=== PATIENT | female | born 1945 | race Two or more races ===

== ENCOUNTER → 2016-12-18 | Outpatient (REF) | payer MEDICARE, BC ==
[2016-12-18 18:33] LABS: BLOOD UREA NITROGEN 24 MG/DL (7-18); CREATININE FOR GFR 0.62 MG/DL (0.55-1.02); GLOMERULAR FILTRATION RATE > 60.0 (>39)
== END ==
LOC: M LABDRAW1 15:54
PROVIDERS: ATTEND Orthopaedic Surgery
DX: M54.5 Low back pain (principal)

== ENCOUNTER → 2017-02-07 | Outpatient (REF) | payer MEDICARE, BC ==
[2017-02-07 20:38] LABS: BASO # 0.1 K/mm3 (0.0-0.2); BASO % 1.5 % (0.0-1.0); EOS # 0.1 K/mm3 (0.0-0.50); EOS % 1.7 % (0.0-3.0); LARGE UNSTAINED CELL # 0.1 K/mm3 (0.0-0.4); LARGE UNSTAINED CELL % 1.9 % (0.0-4.0); LYMPH # 2.7 K/mm3 (1.5-4.5); LYMPH % 38.5 % (24.0-44.0); MEAN CORPUSCULAR HEMOGLOBIN 32.1 pg (27.0-33.0); MEAN CORPUSCULAR HGB CONC 33.2 g/dl (32.0-36.5); MEAN CORPUSCULAR VOLUME 96.8 fl (80.0-96.0); MONO # 0.2 K/mm3 (0.0-0.8); MONO % 3.1 % (0.0-5.0); NEUTROPHILS # 3.8 K/mm3 (1.8-7.7); NEUTROPHILS % 53.3 % (36.0-66.0); PLATELET COUNT, AUTOMATED 266 k/mm3 (150-450); RED CELL DISTRIBUTION WIDTH 12.2 % (11.5-14.5); WHITE BLOOD COUNT 7.1 K/mm3 (4.0-10.0)
[2017-02-07 21:14] LABS: ERYTHROCYTE SEDIMENTATION RATE 9 mm/hr (0-30)
[2017-02-10 00:06] LABS: Lyme Disease IgG/IgM Antibodie <0.91 ISR (0.00-0.90); Lyme Disease IgM Ab Quantitati <0.80 index (0.00-0.79); SJOGREN'S ANTI SS-A <0.2 AI (0.0-0.9); SJOGREN'S ANTI SS-B <0.2 AI (0.0-0.9)
[2017-02-12 00:11] LABS: VITAMIN E LEVEL 16.4 mg/L (6.5-21.5)
[2017-02-14 13:45] LABS: FOLATE 12.3 NG/ML (>5.4); VITAMIN B12 LEVEL 457 PG/ML (247-911)
== END ==
LOC: M LABDRAW1 18:22
PROVIDERS: ATTEND Physician Assistant Medical
DX: R51 Headache (principal); M25.50 Pain in unspecified joint

== ENCOUNTER 2017-03-20 08:20 | Outpatient (RCR) | payer MEDICARE, BC | END 2017-03-23 | LOC: M PT 08:20 | PROVIDERS: ATTEND Physician Assistant Medical | DX: Z51.89 Encounter for other specified aftercare (principal); M47.22 Other spondylosis with radiculopathy, cervical region | CPT/HCPCS: 97110; 97140; 97162; G8981; G8982 ==

== ENCOUNTER 2017-03-25 08:16 | Outpatient (RCR) | payer MEDICARE, BC | END 2017-04-23 | LOC: M PT 08:16 | PROVIDERS: ATTEND Physician Assistant Medical | DX: Z51.89 Encounter for other specified aftercare (principal); M54.2 Cervicalgia; M43.02 Spondylolysis, cervical region | CPT/HCPCS: 97110; G8981; G8982; G8983 ==

== ENCOUNTER → 2017-12-20 | Outpatient (CLI) | payer MEDICARE, BC ==
[2017-12-20 13:50] LABS: RHEUMATOID FACTOR QUANT < 10.0 IU/ML (<15.0)
[2017-12-20 13:57] LABS: ERYTHROCYTE SEDIMENTATION RATE 11 mm/hr (0-30)
[2017-12-20 14:36] LABS: TOTAL 25(OH) VITAMIN D 44.2 NG/ML (30.0-100.0); VITAMIN B12 LEVEL 901 PG/ML
[2017-12-20 14:37] LABS: FOLATE 18.6 NG/ML
[2017-12-25 00:09] LABS: VITAMIN B1 LEVEL WHOLE BLOOD 230.3 nmol/L (66.5-200.0); VITAMIN B6,PYRIDOXAL PHOSPHATE 41.9 ug/L (2.0-32.8)
[2017-12-31 15:00] LABS: ANTI DOUBLE STRAND-DNA AB 15 IU/mL (0-9); ANTINUCLEAR ANTIBODIES DIRECT Positive (Negative); RNP ANTIBODIES <0.2 AI (0.0-0.9); SJOGREN'S ANTI SS-A <0.2 AI (0.0-0.9); SJOGREN'S ANTI SS-B <0.2 AI (0.0-0.9); SMITH ANTIBODIES <0.2 AI (0.0-0.9); VITAMIN E(ALPHA TOCOPHEROL) 23.5 mg/L (9.0-29.0); VITAMIN E(GAMMA TOCOPHEROL) 0.3 mg/L (0.5-4.9)
== END ==
LOC: M SMT 09:00
DX: R53.83 Other fatigue (principal); G62.9 Polyneuropathy, unspecified; M25.50 Pain in unspecified joint
CPT/HCPCS: 82746

== ENCOUNTER 2018-01-09 07:59 | Day surgery (SDC) | payer MEDICARE, BC ==
[2018-01-09] MEDS ORDERED: LIDOCAINE 2% INJ 100 MG/5 ML SDV (FOR ANES.) As Ordered (09:13)
[2018-01-09] MEDS ORDERED: PROPOFOL 200 MG/20 ML VIAL As Ordered (09:13)
[2018-01-09] MEDS ORDERED: fentaNYL 100 MCG/2 ML INJECTION (J3010) As Ordered (09:14)
[2018-01-09] MEDS ORDERED: GLYCOPYRROLATE INJ 0.2 MG/ML 2 ML VIAL As Ordered (09:21)
[2018-01-09] MEDS ORDERED: NS 1,000 ML IV (10:15)
== END 2018-01-09 09:53 | disposition home or self-care (01) ==
LOC: M OPP 07:59
DX: K31.89 Other diseases of stomach and duodenum (principal); R10.13 Epigastric pain; Z79.82 Long term (current) use of aspirin; Z90.710 Acquired absence of both cervix and uterus; J30.2 Other seasonal allergic rhinitis; Z91.89 Other specified personal risk factors, not elsewhere classified; Z90.49 Acquired absence of other specified parts of digestive tract
CPT/HCPCS: 43239

== ENCOUNTER 2018-03-24 09:02 | Outpatient (RCR) | payer MEDICARE, BC | END 2018-04-23 | LOC: M PT 09:02 | DX: Z47.89 Encounter for other orthopedic aftercare (principal); M43.16 Spondylolisthesis, lumbar region | CPT/HCPCS: 97110 ==

== ENCOUNTER 2018-04-24 08:45 | Outpatient (RCR) | payer MEDICARE, BC | END 2018-05-23 | LOC: M PT 04-25 10:19 | DX: Z47.89 Encounter for other orthopedic aftercare (principal); M51.36 Other intervertebral disc degeneration, lumbar region; M51.26 Other intervertebral disc displacement, lumbar region; M48.061 Spinal stenosis, lumbar region without neurogenic claudication; M47.816 Spondylosis without myelopathy or radiculopathy, lumbar region; M43.16 Spondylolisthesis, lumbar region | CPT/HCPCS: 97110 ==

== ENCOUNTER 2019-04-09 09:11 | Day surgery (SDC) | payer MEDICARE, BC ==
[~2019-04-09] VITALS: Ht 160 cm; Wt 79.4 kg
[~2019-04-09 09:11] MED LIST: ASPI81TA26 PO; B COTAB3 PO; CHOL100029 PO; NS 1,000 ML IV ONE; VITA-157 PO; VITA100067 PO; VITA400C7 PO; VITA500T PO; VITATAB11 PO
[2019-04-09] MEDS ORDERED: LIDOCAINE 2% INJ 100 MG/5 ML SDV (FOR ANES.) As Ordered ONE (10:03)
[2019-04-09] MEDS ORDERED: PROPOFOL 200 MG/20 ML VIAL As Ordered ONE (10:03)
[2019-04-09] MEDS ORDERED: GLYCOPYRROLATE INJ 0.2 MG/ML 2 ML VIAL As Ordered ONE (10:56)
--- NOTE | 2019-04-09 11:09 | ROOR ---
Patient Name: Tabitha Montoya Procedure Date: 04/09/2019 10:45 AM Date of : 1945 Age: 73 Room: [facility] Gender: Female Note Status: Finalized Procedure: Colonoscopy Indications: Screening for colorectal malignant neoplasm Providers: Van Cage Jr, MD Referring MD: SUMAN RUBALCAVA MD Requesting Provider: Medicines: Propofol per Anesthesia Complications: No immediate complications. Procedure: Pre-Anesthesia Assessment: - Prior to the procedure, a History and Physical was performed, and patient medications and allergies were reviewed. The patient is competent. The risks and benefits of the procedure and the sedation options and risks were discussed with the patient. All questions were answered and informed consent was obtained. Patient identification and proposed procedure were verified by the physician and the nurse in the pre-procedure area and in the procedure room. Mental Status Examination: alert and oriented. Airway Examination: normal oropharyngeal airway and neck mobility. Respiratory Examination: clear to auscultation. CV Examination: normal. ASA Grade Assessment: II - A patient with mild systemic disease. After reviewing the risks and benefits, the patient was deemed in satisfactory condition to undergo the procedure. The anesthesia plan was to use moderate sedation / analgesia (conscious sedation). Immediately prior to administration of medications, the patient was re-assessed for adequacy to receive sedatives. The heart rate, respiratory rate, oxygen saturations, blood pressure, adequacy of pulmonary ventilation, and response to care were monitored throughout the procedure. The physical status of the patient was re-assessed after the procedure. The Colonoscope was introduced through the anus and advanced to the cecum, identified by appendiceal orifice and ileocecal valve. The colonoscopy was performed without difficulty. The patient tolerated the procedure well. The quality of the bowel preparation was adequate. Findings: The rectum, recto-sigmoid colon, sigmoid colon, descending colon, transverse colon, ascending colon, cecum, appendiceal orifice and ileocecal valve appeared normal. The sigmoid colon, descending colon and transverse colon were moderately redundant. Impression: - The rectum, recto-sigmoid colon, sigmoid colon, descending colon, transverse colon, ascending colon, cecum, appendiceal orifice and ileocecal valve are normal. - Redundant colon. - No specimens collected. Recommendation: - Discharge patient to home (ambulatory). - Repeat colonoscopy in 10 years for screening purposes. Van Cage MD Van Cage Jr, MD 04/09/2019 11:09:22 AM Electronically signed by Van Cage Jr, MD Number of Addenda: 0 Note Initiated On: 04/09/2019 10:45 AM Estimated Blood Loss: Estimated blood loss: none.
[2019-04-09 11:31] VITALS: BP 134/82
== END 2019-04-09 11:40 | disposition home or self-care (01) ==
LOC: M OPP 09:11
PROVIDERS: ATTEND Surgery
DX: Z12.11 Encounter for screening for malignant neoplasm of colon (principal); Q43.8 Other specified congenital malformations of intestine; Z79.82 Long term (current) use of aspirin

== ENCOUNTER → 2019-11-23 | Outpatient (CLI) | payer MEDICARE, BC ==
[~2019-11-23] MED LIST changes: +CALCTAB15 PO; +COQ1200C3 PO; +CVS1CAP2 PO; +D31000TA2 PO; -NS 1,000 ML IV ONE; +REDCAP4 PO; +REST0.05 OU; +SM F10002 PO; +VITA-243 PO; -VITA500T PO; +VITACAP8 PO; +[UNRECOGNIZED DRUG - CODE] PO
--- NOTE | 2019-11-23 11:13 | REPPI ---
REASON: HALIE positive. COMPARISON: 06/21/2011 FINDINGS: The superior mediastinal structures are midline. The cardiac silhouette is unremarkable in size, shape, and position. The diaphragmatic surfaces of the lungs are regular, and the costophrenic angles are clear. The pulmonary [place] are clear. The imaged osseous structures are intact. IMPRESSION: There is no acute cardiopulmonary disease. No significant change from the prior exam. Electronically Signed by Loy Olmedo DO 11/23/2019 12:11 P
[2019-11-23 13:09] LABS: BASO # 0.1 10^3/uL (0.0-0.2); BASO % 1.3 % (0.0-1.0); EOS # 0.1 10^3/uL (0.0-0.5); EOS % 2.4 % (0.0-3.0); HEMATOCRIT 37.3 % (36.0-47.0); HEMOGLOBIN 11.9 g/dl (12.0-15.5); LYMPH # 2.4 10^3/uL (1.5-5.0); LYMPH % 43.1 % (24.0-44.0); MEAN CORPUSCULAR HEMOGLOBIN 31.2 pg (27.0-33.0); MEAN CORPUSCULAR HGB CONC 31.9 g/dl (32.0-36.5); MEAN CORPUSCULAR VOLUME 97.9 fl (80.0-96.0); MONO # 0.4 10^3/uL (0.0-0.8); MONO % 6.4 % (0.0-5.0); NEUTROPHILS # 2.6 10^3/uL (1.5-8.5); NEUTROPHILS % 46.6 % (36.0-66.0); PLATELET COUNT, AUTOMATED 255 10^3/uL (150-450); RED BLOOD COUNT 3.81 10^6/uL (4.00-5.40); WHITE BLOOD COUNT 5.5 10^3/uL (4.0-10.0)
[2019-11-23 13:15] LABS: ALBUMIN 3.9 GM/DL (3.2-5.2); ALT/SGPT 31 U/L (12-78); BILIRUBIN,TOTAL 0.3 MG/DL (0.2-1.0); BLOOD UREA NITROGEN 27 MG/DL (7-18); C REACTIVE PROTEIN QUANTITATIV < 0.30 MG/DL (0.00-0.30); CALCIUM LEVEL 9.1 MG/DL (8.8-10.2); CARBON DIOXIDE LEVEL 31 MEQ/L (21-32); CHLORIDE LEVEL 108 MEQ/L (98-107); COMPLEMENT C3 83 MG/DL (90-180); COMPLEMENT C4 10 MG/DL (10-40); GLOMERULAR FILTRATION RATE > 60.0 (>39); GLUCOSE, FASTING 92 MG/DL (70-100); POTASSIUM SERUM 4.6 MEQ/L (3.5-5.1); SODIUM LEVEL 143 MEQ/L (136-145); TOTAL PROTEIN 6.8 GM/DL (6.4-8.2)
[2019-11-23 13:27] LABS: ERYTHROCYTE SEDIMENTATION RATE 10 mm/hr (0-30)
[2019-11-24 15:38] LABS: ALBUMIN 4.45 GM/DL (3.29-5.55); ALBUMIN % 65.5 % (55.8-66.1); ALPHA-1-GLOBULIN % 3.7 % (2.9-4.9); ALPHA-1-GLOBULINS 0.25 GM/DL (0.17-0.41); ALPHA-2-GLOBULINS 0.58 GM/DL (0.42-0.99); ALPHA-2-GLOBULINS % 8.6 % (7.1-11.8); BETA-1-GLOBULINS % 5.9 % (4.7-7.2); BETA-2-GLOBULINS 0.24 GM/DL (0.19-0.55); BETA-2-GLOBULINS % 3.5 % (3.2-6.5); GAMMA GLOBULIN % 12.8 % (11.1-18.8); GAMMA GLOBULINS 0.87 GM/DL (0.65-1.58)
[2019-11-25 10:08] LABS: ANA (HEP2) Positive (.); ANTI CENTROMERE ANTIBODY <0.2 AI (0.0-0.9); ANTI DS-DNA AB Negative (Negative); ANTI SCLERODERMA ANTIBODIES <0.2 AI (0.0-0.9)
== END ==
LOC: M PLAIMG 09:20
PROVIDERS: ATTEND Internal Medicine
DX: I73.00 Raynaud's syndrome without gangrene (principal); R76.8 Other specified abnormal immunological findings in serum
CPT/HCPCS: 36415; 71046; 80053; 84165; 85025; 85652; 86038; 86140; 86160; 86225; 86235; 86255; G0463

== ENCOUNTER → 2020-01-12 | Outpatient (CLI) | payer MEDICARE, BC ==
[~2020-01-12] MED LIST changes: -D31000TA2 PO; -VITACAP8 PO
--- NOTE | 2020-01-12 12:07 | REP ---
Clinical: History of Raynaud's disease. Technique: Complete adult bone survey to include the skull, cervical thoracic and lumbosacral spine, pelvis, bilateral humerus and femurs. 17 total images obtained for evaluation. Findings: Skull demonstrates hyperostosis frontalis without significant lytic or blastic lesion to suggest underlying osseous abnormality. Advanced degenerative spondylosis to the cervical spine includes osteophytosis, endplate sclerosis, disc space narrowing and facet arthropathy as well as straightening of normal lordosis. No lytic or blastic lesion identified to suggest underlying osseous abnormality. Thoracic and lumbar spine demonstrates age-related osteopenia and moderate multilevel degenerative changes including endplate sclerosis, early osteophytosis, and mild hypertrophic facet changes. No evidence for acute fracture / compression injury of the thoracic or lumbosacral spine noted. Lateral view demonstrates mild chronic grade 1 anterolisthesis at the L4-5 level with associated hypertrophic facet changes. No lytic or blastic lesion identified to suggest underlying osseous abnormality. Generalized symmetric age-related degenerative changes to the bilateral shoulders, elbows, hips and knees noted without lytic or blastic lesion identified to suggest underlying osseous abnormality involving the humerus or femurs. Impression: 1. Degenerative changes as noted above. 2. No significant lytic or blastic osseous lesions to suggest underlying pathology. Electronically Signed by Scott Lopez MD 01/12/2020 11:40 A
== END ==
LOC: M RAD 10:35
PROVIDERS: ATTEND Internal Medicine Hematology & Oncology
DX: I73.00 Raynaud's syndrome without gangrene (principal); D47.2 Monoclonal gammopathy

== ENCOUNTER → 2020-01-14 | Outpatient (CLI) | payer MEDICARE, BC | LOC: M WHC 11:01 | PROVIDERS: ATTEND Internal Medicine Hematology & Oncology | DX: I73.00 Raynaud's syndrome without gangrene (principal) ==

== ENCOUNTER → 2020-01-25 | Outpatient (CLI) | payer MEDICARE, BC | LOC: M CARPUL 09:30 | PROVIDERS: ATTEND Internal Medicine Hematology & Oncology | DX: E85.9 Amyloidosis, unspecified (principal); I73.00 Raynaud's syndrome without gangrene; D47.2 Monoclonal gammopathy ==

== ENCOUNTER → 2020-10-19 | Outpatient (CLI) | payer MEDICARE, BC ==
[~2020-10-19] MED LIST changes: +D31000TA2 PO; -VITA-157 PO; +VITACAP8 PO; +VITAE40CA PO
--- NOTE | 2020-10-19 11:06 | REP ---
INDICATION: COUGH. COMPARISON: Comparison chest x-ray 06/21/2011. TECHNIQUE: Two views.. FINDINGS: The lungs are well inflated and free of infiltrate. The pleural angles are sharp. The heart size is normal. Pulmonary vasculature is not increased. No significant bony abnormality is seen. Thoracic aorta is somewhat tortuous and there are degenerative changes in the thoracic spine. There are surgical clips in right upper quadrant of the abdomen. IMPRESSION: No active cardiopulmonary disease.. <Electronically signed by Schuyler Thorpe > 10/19/20 [id number]
== END ==
LOC: M RAD 10:34
PROVIDERS: ATTEND Allergy & Immunology Allergy
DX: R05 Cough (principal)

== ENCOUNTER → 2020-11-23 | Outpatient (CLI) | payer MEDICARE, BC | LOC: M WHC 08:37 | PROVIDERS: ATTEND Advanced Practice Midwife | DX: M85.80 Other specified disorders of bone density and structure, unspecified site (principal); Z53.9 Procedure and treatment not carried out, unspecified reason ==

== ENCOUNTER → 2020-11-30 | Outpatient (CLI) | payer MEDICARE, BC ==
--- NOTE | 2020-11-30 10:35 | DEXAMM ---
INDICATION: M85.80 OSTEOPENIA AFTER MENOPAUSE. COMPARISON: 02/06/2018, 04/19/2008. TECHNIQUE: Bone density was measured using dual-energy x-ray absorptiometry (DEXA). FINDINGS: AP SPINE L1-L4 BMD 1.229 g/cm2 Young Adult T-Score 0.3 Age Matched Z-Score 2.0. LT FEMUR, TOTAL BMD 0.933 g/cm2 Young Adult T-Score -0.6 Age Matched Z-Score 1.2. LT NECK BMD 0.823 g/cm2 Young Adult T-Score -1.5 Age Matched Z-Score 0.4. RT FEMUR, TOTAL BMD 0.940 g/cm2 Young Adult T-Score -0.5 Age Matched Z-Score 1.2. RT NECK BMD 0.863 g/cm2 Young Adult T-Score -1.3 Age Matched Z-Score 0.7. IMPRESSION: There is normal bone density of the spine. There is low bone density of the left hip. There is low bone density of the right hip. The density of the spine has increased 4.1% since the initial exam on 04/19/2008. The density of the spine increased 0.2% since most recent exam on 02/06/2018. The density of the left hip has decreased 5.5% since initial exam on 04/19/2008. The density of the left hip has decreased 3.8% since most recent exam on 02/06/2018. The density of the right hip has decreased 2.2% since the initial exam on 04/19/2008. The density of the right hip has decreased 0.5% since the most recent exam on 02/06/2018. FOLLOW-UP: Recommendation for the next bone density exam: 2 years. <Electronically signed by Hayder Cheatham > 11/30/20 [id number]
== END ==
LOC: M WHC 07:53
PROVIDERS: ATTEND Advanced Practice Midwife
DX: M85.851 Other specified disorders of bone density and structure, right thigh (principal); M85.852 Other specified disorders of bone density and structure, left thigh

== ENCOUNTER → 2020-12-02 | Outpatient (CLI) | payer MEDICARE, BC | LOC: M WHC 13:10 | PROVIDERS: ATTEND Advanced Practice Midwife | DX: Z12.31 Encounter for screening mammogram for malignant neoplasm of breast (principal); Z53.9 Procedure and treatment not carried out, unspecified reason ==

== ENCOUNTER → 2020-12-12 | Outpatient (CLI) | payer MEDICARE, BC ==
[~2020-12-12] MED LIST changes: +GASTROGRAFIN SOLUTION 30ML (Q9963) As Ordered ONE; +ISOVUE-370 76% 100ML VIAL As Ordered ONE
--- NOTE | 2020-12-12 12:58 | REP ---
INDICATION: GEN ABD PAIN RT LOWER quadrant PAIN. COMPARISON: 05/28/2011. TECHNIQUE: Oral contrast was administered. CT abdomen performed without IV contrast. CT abdomen and pelvis performed with the intravenous administration of 100 cc of Isovue 370. Sagittal and coronal reconstruction images are performed. FINDINGS: Gallbladder: Prior cholecystectomy. Spleen: Normal. Adrenals: Normal. Pancreas: Normal. Kidneys: Normal. Small and large bowel: Unremarkable. Free fluid: None. Adenopathy: None. Appendix: Not inflamed. Osseous structures: There are degenerative changes of the spine without compression deformity. Pelvis: No mass. Prior hysterectomy. IMPRESSION: No significant abnormality detected. <Electronically signed by Hayder Cheatham > 12/12/20 [id number]
== END ==
LOC: M RAD 07:03
PROVIDERS: ATTEND Surgery
DX: R10.84 Generalized abdominal pain (principal); R10.31 Right lower quadrant pain; Z90.49 Acquired absence of other specified parts of digestive tract
CPT/HCPCS: 74178; Q9963; Q9967

== ENCOUNTER → 2021-01-28 | Outpatient (CLI) | payer MEDICARE, BC ==
[~2021-01-28] MED LIST changes: -GASTROGRAFIN SOLUTION 30ML (Q9963) As Ordered ONE; -ISOVUE-370 76% 100ML VIAL As Ordered ONE
== END ==
LOC: M LAB 08:25
PROVIDERS: ATTEND Physician Assistant Medical
DX: R51.9 Headache, unspecified (principal)

== ENCOUNTER → 2021-04-03 | Outpatient (CLI) | payer MEDICARE, BC ==
--- NOTE | 2021-04-03 09:01 | REPMRS ---
Patient History The patient states she had a clinical breast exam in November 2020. Patient is postmenopausal. No known family history of cancer. Taking estrogen for 20 years. Tomosynthesis is performed. Volpara breast density is b. [facility] lifetime risk of breast cancer 4.6%. Moderna vaccine 08/18/20 left arm. 09/21/20 right arm. 03/03/21 right arm. Patient states no breast complaints today. Patient has signed MRS History Sheet. Digital Woman Screen Mammo: April 03, 2021 - Exam #: [id number] Bilateral CC and MLO view(s) were taken. Technologist: RT Magali Prior study comparison: March 31, 2020, bilateral digital mammo screening bilat, performed at [facility]. February 11, 2019, bilateral digital mammo screening bilat, performed at [facility]. FINDINGS: There are scattered fibroglandular densities. There has been no change in the appearance of the mammogram from the prior studies. There is a mild amount of residual fibroglandular tissue which is fairly symmetric. There is no interval development of dominant mass, architectural distortion, or clustered microcalcification suggestive of malignancy. Assessment: BI-RADS/ACR category 1 mammogram. Negative Mammogram. Recommendation Routine screening mammogram in 1 year (for women over age 40). This mammogram was interpreted with the aid of an FDA-approved computer-aided dectection system. Electronically Signed By: Hayder Cheatham MD 04/03/21 0901
== END ==
LOC: M WHC 07:58
PROVIDERS: ATTEND Advanced Practice Midwife
DX: Z12.31 Encounter for screening mammogram for malignant neoplasm of breast (principal)

== ENCOUNTER → 2021-11-21 | Outpatient (RCR) | payer MEDICARE, BC ==
[~2021-11-21] MED LIST changes: -D31000TA2 PO; +VITA100093 PO
== END ==
LOC: M PT 10-30 13:43
PROVIDERS: ATTEND Physician Assistant
DX: M51.36 Other intervertebral disc degeneration, lumbar region (principal); M70.70 Other bursitis of hip, unspecified hip

== ENCOUNTER → 2021-11-28 | Outpatient (CLI) | payer MEDICARE, BC | LOC: M PLAIMG 12:41 | PROVIDERS: ATTEND Physician Assistant | DX: M51.36 Other intervertebral disc degeneration, lumbar region (principal); M51.24 Other intervertebral disc displacement, thoracic region; M51.26 Other intervertebral disc displacement, lumbar region; M51.34 Other intervertebral disc degeneration, thoracic region; N94.89 Other specified conditions associated with female genital organs and menstrual cycle ==

== ENCOUNTER 2021-11-29 09:15 | Outpatient (RCR) | payer MEDICARE, BC | END 2021-12-21 | LOC: M PT 09:15 | PROVIDERS: ATTEND Physician Assistant | DX: M51.36 Other intervertebral disc degeneration, lumbar region (principal); M70.70 Other bursitis of hip, unspecified hip ==

== ENCOUNTER → 2022-01-29 | Outpatient (REF) | payer MEDICARE, BC | LOC: M SFHCRHEU 15:46 | PROVIDERS: ATTEND Internal Medicine | DX: I73.00 Raynaud's syndrome without gangrene (principal); R76.8 Other specified abnormal immunological findings in serum; M89.9 Disorder of bone, unspecified ==

== ENCOUNTER → 2022-01-30 | Outpatient (CLI) | payer MEDICARE, BC ==
[2022-01-30 08:51] LABS: C REACTIVE PROTEIN QUANTITATIV < 0.30 MG/DL (0.00-0.30); COMPLEMENT C3 89 MG/DL (90-180); COMPLEMENT C4 15 MG/DL (10-40); MAGNESIUM LEVEL 2.2 MG/DL (1.8-2.4); PHOSPHORUS LEVEL 3.4 MG/DL (2.5-4.9)
[2022-01-30 11:15] LABS: TOTAL 25(OH) VITAMIN D 48.1 NG/ML (30.0-100.0)
[2022-01-31 23:07] LABS: ANA (HEP2) Positive (.); ANTI SCLERODERMA ANTIBODIES <0.2 AI (0.0-0.9); COMPLEMENT TOTAL (CH50) 50 U/mL (>41)
== END ==
LOC: M LAB 07:49
PROVIDERS: ATTEND Internal Medicine
DX: I73.00 Raynaud's syndrome without gangrene (principal); R76.8 Other specified abnormal immunological findings in serum; M89.9 Disorder of bone, unspecified

== ENCOUNTER 2022-02-20 08:42 | Outpatient (RCR) | payer MEDICARE, BC | END 2022-02-21 | LOC: M PT 08:42 | PROVIDERS: ATTEND Physician Assistant | DX: S32.020D Wedge compression fracture of second lumbar vertebra, subsequent encounter for fracture with routine healing (principal) ==

== ENCOUNTER 2022-03-21 08:45 | Outpatient (RCR) | payer MEDICARE, BC | END 2022-03-23 | LOC: M PT 08:45 | PROVIDERS: ATTEND Physician Assistant | DX: M54.50 Low back pain, unspecified (principal); M75.42 Impingement syndrome of left shoulder; S32.020D Wedge compression fracture of second lumbar vertebra, subsequent encounter for fracture with routine healing ==

== ENCOUNTER → 2022-04-06 | Outpatient (CLI) | payer MEDICARE, BC | LOC: M WHC 14:36 | PROVIDERS: ATTEND Advanced Practice Midwife | DX: Z12.31 Encounter for screening mammogram for malignant neoplasm of breast (principal) ==

== ENCOUNTER → 2022-04-23 | Outpatient (RCR) | payer MEDICARE, BC | LOC: M PT 03-28 08:38 | PROVIDERS: ATTEND Physician Assistant | DX: S32.020D Wedge compression fracture of second lumbar vertebra, subsequent encounter for fracture with routine healing (principal); M54.50 Low back pain, unspecified ==

== ENCOUNTER 2022-04-26 11:52 | Outpatient (RCR) | payer MEDICARE, BC | END 2022-05-23 | LOC: M PT 11:52 | PROVIDERS: ATTEND Physician Assistant | DX: M54.50 Low back pain, unspecified (principal) ==

== ENCOUNTER → 2023-05-13 | Outpatient (CLI) | payer MEDICARE, BC | LOC: M WHC 08:02 | PROVIDERS: ATTEND Advanced Practice Midwife | DX: Z12.31 Encounter for screening mammogram for malignant neoplasm of breast (principal); Z13.820 Encounter for screening for osteoporosis; M85.851 Other specified disorders of bone density and structure, right thigh; M85.852 Other specified disorders of bone density and structure, left thigh ==

== ENCOUNTER → 2023-08-26 | Outpatient (REF) | payer MEDICARE, BC ==
[2023-08-26 19:18] LABS: COMPLEMENT C3 113.9 MG/DL (90.0-170.0); COMPLEMENT C4 13.8 MG/DL (12-36)
[2023-08-28 23:09] LABS: ANA (HEP2) Positive (.); ANTI CENTROMERE ANTIBODY 0.3 AI (0.0-0.9); COMPLEMENT TOTAL (CH50) 52 U/mL (>41)
== END ==
LOC: M SFHCRHEU 12:50
PROVIDERS: ATTEND Internal Medicine
DX: D84.1 Defects in the complement system (principal); R76.8 Other specified abnormal immunological findings in serum; I73.00 Raynaud's syndrome without gangrene

== ENCOUNTER 2023-09-16 13:57 | Observation (INO) | payer MEDICARE, BC ==
[~2023-09-16] VITALS: Ht 160 cm; Wt 83.9 kg
[2023-09-16] MEDS: ASPIRIN 81MG CHEW TABLET PO SCH (09:00)
[2023-09-16 16:00] LABS: BASO # 0.1 10^3/uL (0.0-0.2); BASO % 0.9 % (0.0-1.0); EOS # 0.1 10^3/uL (0.0-0.5); EOS % 1.5 % (0.0-3.0); HEMATOCRIT 38.4 % (36.0-47.0); HEMOGLOBIN 12.4 g/dl (12.0-15.5); LYMPH # 2.2 10^3/uL (1.5-5.0); LYMPH % 33.1 % (24.0-44.0); MEAN CORPUSCULAR HEMOGLOBIN 31.7 pg (27.0-33.0); MEAN CORPUSCULAR HGB CONC 32.3 g/dl (32.0-36.5); MEAN CORPUSCULAR VOLUME 98.2 fl (80.0-96.0); MONO # 0.4 10^3/uL (0.0-0.8); MONO % 5.6 % (2.0-8.0); NEUTROPHILS % 58.6 % (36.0-66.0); PLATELET COUNT, AUTOMATED 242 10^3/uL (150-450); RED BLOOD COUNT 3.91 10^6/uL (4.00-5.40); WHITE BLOOD COUNT 6.8 10^3/uL (4.0-10.0)
[2023-09-16 16:13] LABS: INR 0.96; PARTIAL THROMBOPLASTIN TIME 29.5 SECONDS (24.8-34.2); PROTHROMBIN TIME 12.5 SECONDS (12.5-14.5)
[2023-09-16 16:30] LABS: BLOOD UREA NITROGEN 14 MG/DL (9-23); CALCIUM LEVEL 8.8 MG/DL (8.3-10.6); CARBON DIOXIDE LEVEL 30 MMOL/L (20-31); CHLORIDE LEVEL 108 MMOL/L (98-107); CK-MB VALUE MASS 1.9 NG/ML (<3.6); CPK CREATINE PHOSPHOKINASE 89 U/L (34-145); CREATININE FOR GFR 0.63 MG/DL (0.55-1.30); GLOMERULAR FILTRATION RATE > 60.0 (>39); GLUCOSE, FASTING 96 MG/DL (74-106); MB/CK RELATIVE INDEX 2.13 (< OR =4); SODIUM LEVEL 141 MMOL/L (136-145)
[2023-09-16 16:42] LABS: RSV AMPLIFICATION NEGATIVE (NEGATIVE)
[2023-09-16 16:56] LABS: ERYTHROCYTE SEDIMENTATION RATE 9 mm/hr (0-30)
[2023-09-16] MEDS: NS 1,000 ML IV SCH (16:59)
[2023-09-16] MEDS: ASPIRIN 81MG CHEW TABLET PO ONE (17:27)
[2023-09-16] MEDS ORDERED: LORazepam 2 MG/ML 1ML VIAL IV PRN (17:50)
[2023-09-16] MEDS ORDERED: FLAX1CAP5 PO (18:08)
[2023-09-16] MEDS ORDERED: VITA400C83 PO (18:08)
[2023-09-16] MEDS ORDERED: TRET0.02 TOP (18:08)
[2023-09-16] MEDS ORDERED: ALEN70TA82 PO (18:08)
[2023-09-16] MEDS ORDERED: HOME MED LIST COMPLETE! XX SCH (18:10)
[2023-09-16] MEDS: ENOXAPARIN 40MG/0.4ML SYRINGE (J1650 PER 10MG) SC SCH (20:02)
[2023-09-16 20:03] LABS: CHOLESTEROL RISK RATIO 3.08 (<5)
[2023-09-16 20:25] VITALS: BP 166/75; TEMP 98.3
[2023-09-16] MEDS: ATORVASTATIN 20 MG TAB PO SCH (20:44)
[2023-09-16 23:12] VITALS: BP 119/55; TEMP 98; O2SAT 95
[2023-09-17 03:51] VITALS: BP 122/61; TEMP 97.6; O2SAT 95
[2023-09-17 05:41] LABS: BASO # 0.1 10^3/uL (0.0-0.2); BASO % 0.9 % (0.0-1.0); EOS # 0.1 10^3/uL (0.0-0.5); EOS % 2.2 % (0.0-3.0); HEMATOCRIT 33.8 % (36.0-47.0); HEMOGLOBIN 11.3 g/dl (12.0-15.5); LYMPH # 2.7 10^3/uL (1.5-5.0); LYMPH % 42.7 % (24.0-44.0); MEAN CORPUSCULAR HEMOGLOBIN 32.7 pg (27.0-33.0); MEAN CORPUSCULAR HGB CONC 33.4 g/dl (32.0-36.5); MEAN CORPUSCULAR VOLUME 97.7 fl (80.0-96.0); MONO # 0.4 10^3/uL (0.0-0.8); MONO % 6.8 % (2.0-8.0); NEUTROPHILS % 47.2 % (36.0-66.0); PLATELET COUNT, AUTOMATED 216 10^3/uL (150-450); RED BLOOD COUNT 3.46 10^6/uL (4.00-5.40); WHITE BLOOD COUNT 6.3 10^3/uL (4.0-10.0)
[2023-09-17 06:15] LABS: BLOOD UREA NITROGEN 13 MG/DL (9-23); CALCIUM LEVEL 8.3 MG/DL (8.3-10.6); CARBON DIOXIDE LEVEL 29 MMOL/L (20-31); CHLORIDE LEVEL 109 MMOL/L (98-107); CREATININE FOR GFR 0.63 MG/DL (0.55-1.30); GLOMERULAR FILTRATION RATE > 60.0 (>39); GLUCOSE, FASTING 98 MG/DL (74-106); POTASSIUM SERUM 3.8 MMOL/L (3.5-5.1); SODIUM LEVEL 142 MMOL/L (136-145)
[2023-09-17 07:51] VITALS: BP 120/58; TEMP 97.3; O2SAT 96
[2023-09-17 08:00] VITALS: BP 120/58; TEMP 97.3; O2SAT 95
[2023-09-17 08:13] LABS: HEMOGLOBIN A1c 5.1 % (4.0-6.0)
[2023-09-17] MEDS ORDERED: ASPI81TA26 PO (10:42)
[2023-09-17] MEDS ORDERED: ATOR40TA75 PO (10:42)
[2023-09-17 11:53] VITALS: BP 139/62; TEMP 98; O2SAT 95
== END 2023-09-17 12:15 | disposition home or self-care (01) ==
LOC: M ED 13:57 → M ED INP 13:58 → M PCU 20:16
PROVIDERS: ADMIT Internal Medicine; ATTEND Internal Medicine
DX: G45.3 Amaurosis fugax (principal); H53.121 Transient visual loss, right eye; J30.2 Other seasonal allergic rhinitis; Z79.82 Long term (current) use of aspirin; Z79.899 Other long term (current) drug therapy
CPT/HCPCS: 36415; 70450; 70544; 70551; 71045; 80047; 80048; 80061; 82550; 82553; 83036; 83735; 84484; 85025; 85610; 85652; 85730; 86140; 86850; 86900; 86901; 87631; 93005; 93041; 93306; 93880; 94760; 96360; 96361; 96372; 97161; 99285; G0378; J1650

== ENCOUNTER → 2024-01-02 | Outpatient (REF) | payer MEDICARE, BC ==
[~2024-01-02] MED LIST changes: +ALEN70TA82 PO; +ATOR40TA75 PO; +FLAX1CAP5 PO; +TRET0.02 TOP; +VITA400C83 PO
== END ==
LOC: M LAB REF 16:09
PROVIDERS: ATTEND Podiatrist
DX: L03.032 Cellulitis of left toe (principal)

== ENCOUNTER → 2024-02-03 | Outpatient (REF) | payer MEDICARE, BC | LOC: M LAB REF 16:16 | PROVIDERS: ATTEND Podiatrist | DX: L03.032 Cellulitis of left toe (principal) ==

== ENCOUNTER → 2024-02-14 | Outpatient (CLI) | payer MEDICARE, BC ==
[~2024-02-14] MED LIST changes: +MINO100C4 PO
[2024-02-14 11:39] LABS: BASO # 0.1 10^3/uL (0.0-0.2); BASO % 1.1 % (0.0-1.0); EOS # 0.1 10^3/uL (0.0-0.5); EOS % 2.1 % (0.0-3.0); HEMATOCRIT 37.2 % (36.0-47.0); HEMOGLOBIN 12.3 g/dl (12.0-15.5); LYMPH # 2.5 10^3/uL (1.5-5.0); LYMPH % 43.3 % (24.0-44.0); MEAN CORPUSCULAR HEMOGLOBIN 32.7 pg (27.0-33.0); MEAN CORPUSCULAR HGB CONC 33.1 g/dl (32.0-36.5); MEAN CORPUSCULAR VOLUME 98.9 fl (80.0-96.0); MONO # 0.4 10^3/uL (0.0-0.8); MONO % 7.7 % (2.0-8.0); NEUTROPHILS # 2.6 10^3/uL (1.5-8.5); NEUTROPHILS % 45.4 % (36.0-66.0); PLATELET COUNT, AUTOMATED 226 10^3/uL (150-450); RED BLOOD COUNT 3.76 10^6/uL (4.00-5.40); WHITE BLOOD COUNT 5.7 10^3/uL (4.0-10.0)
[2024-02-14 12:02] LABS: BLOOD UREA NITROGEN 25 MG/DL (9-23); CALCIUM LEVEL 8.8 MG/DL (8.3-10.6); CARBON DIOXIDE LEVEL 30 MMOL/L (20-31); CHLORIDE LEVEL 111 MMOL/L (98-107); CREATININE FOR GFR 0.65 MG/DL (0.55-1.30); GLOMERULAR FILTRATION RATE > 60.0 (>39); GLUCOSE, FASTING 100 MG/DL (74-106); POTASSIUM SERUM 4.5 MMOL/L (3.5-5.1); SODIUM LEVEL 142 MMOL/L (136-145)
== END ==
LOC: M LAB 10:44
PROVIDERS: ATTEND Podiatrist
DX: T84.84XA Pain due to internal orthopedic prosthetic devices, implants and grafts, initial encounter (principal); M79.672 Pain in left foot; Y83.1 Surgical operation with implant of artificial internal device as the cause of abnormal reaction of the patient, or of later complication, without mention of misadventure at the time of the procedure

== ENCOUNTER 2024-02-21 07:43 | Day surgery (SDC) | payer MEDICARE, BC ==
[~2024-02-21] VITALS: Ht 160 cm; Wt 81.6 kg
[2024-02-21] MEDS: VANCOMYCIN HCL 1,000 MG, VIAL MATE ADAPTER 1 EACH in D5W 250 ML IV ONE (08:35)
[2024-02-21] MEDS ORDERED: LR 1,000 ML IV SCH (08:40)
[2024-02-21] MEDS ORDERED: ONDANSETRON 4MG 2ML VIAL As Ordered ONE (08:41)
[2024-02-21] MEDS ORDERED: propofoL 200 MG/20 ML VIAL As Ordered ONE (08:41)
[2024-02-21] MEDS ORDERED: LIDOCAINE 2% 100MG/5ML SDV (FOR ANES.) As Ordered ONE (08:41)
[2024-02-21] MEDS ORDERED: KETOROLAC 60MG 2ML VIAL As Ordered ONE (08:41)
[2024-02-21] MEDS ORDERED: ACETAMINOPHEN 1000MG 100ML IV BAG As Ordered ONE (08:41)
[2024-02-21] MEDS ORDERED: MIDAZOLAM INJ 2MG/2ML VIAL As Ordered ONE (08:42)
[2024-02-21] MEDS ORDERED: fentaNYL 100 MCG/2 ML INJECTION As Ordered ONE (08:42)
[2024-02-21] MEDS ORDERED: BACITRACIN OINTMENT 30GM TUBE As Ordered ONE (09:18)
[2024-02-21] MEDS ORDERED: ROPIvacaine 0.5% 30ML VIAL As Ordered ONE (09:18)
[2024-02-21] MEDS ORDERED: ePHEDrine SULFATE 25 MG/5 ML(5MG/ML) SYRINGE As Ordered ONE (10:17)
[2024-02-21] MEDS: LIDOCAINE 2% MDV 20ML VIAL As Ordered ONE (10:21)
[2024-02-21] MEDS: GENTAMICIN SULF 80MG/2ML VIAL As Ordered ONE (10:21)
[2024-02-21 11:35] VITALS: BP 155/67; TEMP 97.6; O2SAT 96
[2024-02-21] MEDS ORDERED: PHENYLephrine 500MCG 5ML (100MCG/ML) SYRINGE As Ordered ONE (14:39)
[2024-02-21] MEDS ORDERED: KETAMINE INJ 500MG/5ML VIAL As Ordered ONE (14:44)
== END 2024-02-21 11:35 | disposition home or self-care (01) ==
LOC: M SDC 07:43
PROVIDERS: ATTEND Podiatrist
DX: T84.84XA Pain due to internal orthopedic prosthetic devices, implants and grafts, initial encounter (principal); Y79.2 Prosthetic and other implants, materials and accessory orthopedic devices associated with adverse incidents; M20.42 Other hammer toe(s) (acquired), left foot; R26.2 Difficulty in walking, not elsewhere classified; M81.0 Age-related osteoporosis without current pathological fracture; Z90.710 Acquired absence of both cervix and uterus; Z79.899 Other long term (current) drug therapy
CPT/HCPCS: 20680; 28285; 73630; 88300; J0131; J0665; J1100; J1580; J1885; J2250; J2371; J2405; J3010; J3370

== ENCOUNTER 2024-03-26 11:44 | Emergency (ER) | payer MEDICARE, BC ==
[~2024-03-26] VITALS: Ht 160 cm; Wt 83.1 kg
[~2024-03-26 11:44] MED LIST changes: +E-401CAP2 PO; -VITA400C83 PO
[2024-03-26] MEDS: OXYMETAZOLINE 0.05% NASAL SPRAY (AFRIN) ONE (12:27)
[2024-03-26 13:20] VITALS: BP 158/80; TEMP 98; O2SAT 96
== END 2024-03-26 13:23 | disposition home or self-care (01) ==
LOC: M ED 11:44
DX: R04.0 Epistaxis (principal); Z79.899 Other long term (current) drug therapy

== ENCOUNTER → 2025-01-01 | Outpatient (CLI) | payer MEDICARE, BC ==
[~2025-01-01] MED LIST changes: +FAMO40TA3; +HYDR-3490; +LOSA50TA28; +ROSU20TA86; -TRET0.02 TOP; +TRET0.046 TOP
== END ==
LOC: M WHC 09:21
PROVIDERS: ATTEND Advanced Practice Midwife
DX: Z12.31 Encounter for screening mammogram for malignant neoplasm of breast (principal); R92.313 Mammographic fatty tissue density, bilateral breasts

== ENCOUNTER → 2025-05-17 | Outpatient (CLI) | payer MEDICARE, BC | LOC: M WHC 11:57 | PROVIDERS: ATTEND Advanced Practice Midwife | DX: M81.0 Age-related osteoporosis without current pathological fracture (principal) ==